=== PATIENT | female | born 2000 | race Caucasian/White ===

== ENCOUNTER 2021-03-18 09:13 | Emergency (ER) | payer OTHER, MEDICAID, SELFPAY ==
--- NOTE | ~2021-03-18 | CT_ITS ---
EXAMINATION: CT HEAD WITHOUT CONTRAST CLINICAL INFORMATION: Intermittent pains in her head x1 year. COMPARISON: None TECHNIQUE: Contiguous axial imaging was performed from the skull base to vertex without intravenous administration of contrast. This CT examination was performed using dose optimization techniques as appropriate, variously including the following: *Automated exposure control *Adjustment of mA and/or kV according to patient size (this includes techniques or standardized protocols for targeted exams where dose is matched to indication/reason for exam; i.e. extremities or head) *Use of iterative reconstruction technique DLP: 767 mGy-cm FINDINGS: There is no evidence of acute intracranial hemorrhage or territorial infarction. No abnormal mass effect or midline shift is seen. Oliver to white matter differentiation is well preserved. No extra-axial fluid collections are identified. The ventricles are normal in size. There is no abnormal attenuation within the brain parenchyma. The osseous structures and soft tissues are normal. The mastoid air cells and visualized portions of the paranasal sinuses are well aerated. CT/CT head/brain wo con IMPRESSION: No acute intracranial process seen.
[2021-03-18 09:26] VITALS: BP 144/95; PULSE 89; RESP 16; TEMP 36.8; O2SAT 98; BMI 45.1
--- NOTE | 2021-03-18 12:07 | ED.GENADULT ---
HPI - General Adult General Chief complaint: General Medical Stated complaint: head pain Time Seen by Provider: 03/18/21 10:47 Source: patient Mode of arrival: ambulatory Limitations: no limitations History of Present Illness HPI narrative: 20-year-old female presenting to the ED with complaints of atraumatic head pain that has been intermittent for the past year and she is getting concerned about this therefore she came here for further evaluation treatment. She denies any injuries that she can recall to the head, dizziness, headaches, change in vision, neck pain/stiffness, rashes or any other symptoms complaints or concerns at this time. complaint: Head pain Related Data Previous Rx's Medication Instructions Recorded acetaminophen 500 mg tablet 1,000 mg PO QID PRN #14 tab 03/18/21 (Tylenol Extra Strength) Allergies Allergy/AdvReac Type Severity Reaction Status Date / Time No Known Allergies Allergy Unverified 03/15/20 19:49 [No Known Allergies*] Review of Systems Review of Systems: Constitutional : No Weight loss, No Fever, No Chills, No Night Sweats, No Fatigue, NoMalaise ENT/Mouth: No ear pain, No sore throat, No Difficulty swallowing Cardiovascular : No Chest Pain, No SOB, No Dyspnea on Exertion, No Orthopnea, NoEdema, No Palpitations Respiratory : No Cough, No Sputum, No Wheezing, No Dyspnea Gastrointestinal : No Nausea, No Vomiting, No abdominal pain, No Diarrhea, No blood streaked emesis, No coffee-ground emesis, No gross hematemesis, No blood streak stool, No gross hematochezia, No Melena Genitourinary : No irregular bleeding, No Dysuria, No Urinary Frequency, No Hematuria,No Urinary Incontinence, No Urgency, No Flank Pain Musculoskeletal : No joint pain, No Myalgias, No Joint Swelling Skin : No Skin Lesions, No rash Neuro : Positive scalp/head pain, No Weakness, No Numbness, No Paresthesias, No Loss of Consciousness, No Dizziness, No Headache Psych : No Social Issues, Heme/Lymph: No Bruising, No Bleeding,No Lymphadenopathy Endocrine : No Polyuria, No Polydipsia, No Temperature Intolerance Yes all other systems are reviewed and are negative PMFSH Past Medical History Attestation statement: The following information was validated with the patient. Social History Social History Advance Directives: No Advance Directives Information Provided: No Physical Exam Vital Signs: Vital Signs: Last Vital Signs Temp 98.3 F 03/18/21 09:26 Pulse 89 03/18/21 09:26 Resp 16 03/18/21 09:26 BP 144/95 H 03/18/21 09:26 Pulse Ox 98 03/18/21 09:26 Body Mass Index 45.1 vital signs have been reviewed as normal and appeared to be correct. Blood pressure normal. Heart rate normal. Respiration rate normal. Temperature normal. Oxygen saturation normal. Appearance: Alert. Oriented X3. No acute distress. Head: Normal external exam. Normocephalic. Atraumatic. No rashes/induration/fluctuance/lesion/signs of infection noted. Eyes: PERRLA. EOMI. Conjunctiva and sclera normal. Eyelids normal. ENT: Pharynx normal. Uvula midline. Moist mucous membranes. Neck: Normal inspection. Neck supple. FROM. No adenopathy. No meningeal signs. CVS: Normal heart rate and rhythm. Heart sound normal. Pulses normal throughout. No murmurs/rales/gallops. Respiratory: No respiratory distress. Painless inspiration. Back: Full range of motion noted. No rashes/lesion/induration/fluctuance or signs of infection noted. Skin: Skin warm and dry. Normal skin color. Normal skin turgor. No rashes/lesions/lacerations noted. Extremities: Extremities exhibit normal range of motion. Extremities nontender. Neuro: Oriented X 3. No motor deficit. No sensory deficit. Reflexes normal. Normal steady gait. No focal neuro deficits noted. Vascular: + radial pulses/+ 2 distal pedal pulses/+2 dorsalis pedis b/l. Normal cap refill. No cyanosis noted to upper extremity nails and lower extremity toes nails. Course Course Course Narrative: 20-year-old female with a parietal head pain that has been intermittent over the past year no injury. Patient has benign exam. Neuro intact. No focal neuro deficits are noted. CT scan of brain obtained and negative for any acute processes. Patient most likely intermittent headaches or strain of the scalp. Will DC home with instructions return if any new or worsening symptoms to follow up with primary care provider. Patient understands agrees with this plan. Medical Decision Making Medical Records Medical records reviewed: Yes I reviewed the patient's medical records. Imaging Data CT scan - head: Attestation: I personally reviewed and interpreted this imaging study as follows: Radiologist's impression: FINDINGS: There is no evidence of acute intracranial hemorrhage or territorial infarction. No abnormal mass effect or midline shift is seen. Oliver to white matter differentiation is well preserved. No extra-axial fluid collections are identified. The ventricles are normal in size. There is no abnormal attenuation within the brain parenchyma. The osseous structures and soft tissues are normal. The mastoid air cells and visualized portions of the paranasal sinuses are well aerated. ? CT/CT head/brain wo con IMPRESSION: No acute intracranial process seen. Discharge Plan Discharge Clinical Impression: Pain of scalp Patient Disposition: Home, Self-Care Instructions: General Headache (ED) Prescriptions: New acetaminophen [Tylenol Extra Strength] 500 mg tablet 1,000 mg PO QID PRN (Reason: fever or pain) Qty: 14 RF: 0 Referrals: Physician,Unknown [Primary Care Provider] - 2 days (your pcp) Stand Alone Forms: Work/School Release Print Language: Amharic
== END 2021-03-18 12:31 | disposition home or self-care (01) ==
PROVIDERS: Emergency Provider Emergency Medicine Emergency Medical Services
DX: R51.9 Headache, unspecified (principal)
CPT/HCPCS: 70450; 99283; 99284

== ENCOUNTER 2021-03-22 15:14 | Emergency (ER) | payer OTHER, SELFPAY ==
--- NOTE | ~2021-03-22 | XR_ITS ---
EXAMINATION: XR FOOT, RIGHT CLINICAL INFORMATION: Anterior pain travels up the ankle. Twisting injury. Swelling and pain COMPARISON: None TECHNIQUE: AP, lateral, and oblique views of the right foot. FINDINGS: Mild dorsal soft tissue swelling overlying the mid foot. Bones are normal anatomic alignment with no acute fracture or dislocation seen. No significant degenerative or destructive changes. No radiographic foreign body XR/XR foot RT 2V IMPRESSION: Soft tissue swelling but no acute bony abnormality.
[2021-03-22 17:00] VITALS: BP 124/68; PULSE 88; RESP 16; TEMP 36.8; O2SAT 98; BMI 45.1
--- NOTE | 2021-03-22 18:11 | ED.LOWEXIN ---
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 Patient jumped for the ball and ?landed funny?. She did not fall, she did not hit her head, no loss of consciousness. Patient can weight bear, and when she was walking the pain as a 6/10. MD complaint: foot injury Onset (ago): hour(s) (2) Type of Injury: unknown Place: school Severity: moderate Severity scale (1-10): 6 Relieving factors: nothing Exacerbating factors: movement Associated symptoms: swelling Other symptoms: none Related Data Previous Rx's Medication Instructions Recorded acetaminophen 500 mg tablet 1,000 mg PO QID PRN #14 tab 03/18/21 (Tylenol Extra Strength) Allergies Allergy/AdvReac Type Severity Reaction Status Date / Time No Known Allergies Allergy Verified 03/22/21 17:43 [No Known Allergies*] Review of Systems Constitutional: Constitutional: Denies body ache(s), Denies chills, Denies fatigue, Denies fever(s), Denies headache(s), Denies malaise and Denies weakness Eyes: Eyes: Denies diplopia ENT: Denies vertigo, Denies dizziness, Denies headache(s) and Denies throat swelling Cardiovascular: Cardiovascular: Denies chest pain, Denies syncope, Denies leg edema, Denies lightheadedness, Denies Loss of Consciousness, Denies palpitations and Denies dyspnea Respiratory: Respiratory: Denies chest congestion, Denies cough and Denies dyspnea Musculoskeletal: Comments: foot pain Neurologic: Denies confusion, Denies vertigo, Denies dizziness, Denies syncope, Denies headache(s) and Denies weakness Psychiatric: Psychiatric: Denies anxiety, Denies confusion and Denies depression Endocrine: Endocrine: Denies fatigue and Denies palpitations Allergic/Immunologic: Allergic/Immunologic: Denies throat swelling PMFSH Social History Social History Advance Directives: No Advance Directives Information Provided: No Patient : No Physical Exam Vital Signs: Vital Signs: Last Vital Signs Temp 98.2 F 03/22/21 17:00 Pulse 88 03/22/21 17:00 Resp 16 03/22/21 17:00 BP 124/68 03/22/21 17:00 Pulse Ox 98 03/22/21 17:00 Body Mass Index 45.1 Const: General: No confusion Nutritional Appearance: well nourished Orientation/consciousness: No confusion Limitations: no limitations Eyes: Conjunctivae: conjunctivae normal Pupils: Equal, round and reactive pupils present EOM: EOMs intact bilaterally Neck: Neck: Yes full ROM, Yes no lymphadenopathy and Yes supple Resp: Effort & Inspection: normal respiratory effort and able to speak in complete sentences Auscultation: clear to auscultation bilaterally, no crackles, no rales, no rhonchi and no wheezes Cardio: Rate: regular rate Rhythm: regular rhythm Heart sounds: S1 normal heart sound present and S2 normal heart sound present Skin: Other: Mild soft tissue swelling dorsum right foot Neuro: General: No confusion Cranial nerves: Yes Equal, round and reactive pupils present Extrem: Right lower extremity: full ROM, normal capillary refill and foot Details: normal capillary refill, tenderness Location: of the dorsal foot Location: proximally, toes with normal ROM, vascular exam Details: dorsalis pedis pulse present, posterior tibial pulse present and normal capillary refill, tendon exam Details: active flexion normal and active extension normal and motor-sensory exam Details: light-touch normal; Negative for no unusual warmth and no crepitus; No no edema Psych: Appearance: grossly normal Affect: normal affect Attitude: cooperative Thought process: Normal thought process present Course Course Course Narrative: 20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 Patient can weightbear. X-ray shows soft tissue swelling mid foot, no fracture or dislocation. Patient provided postop shoe, return to play and 5 days, alternate Tylenol ibuprofen, counseled RICE, return precautions given Discharge Plan Discharge Clinical Impression: Contusion of foot, right Qualifiers: Encounter type: initial encounter Qualified Code(s): S90.31XA - Contusion of right foot, initial encounter Patient Disposition: Home, Self-Care Instructions: Contusion in Adults (ED), R.I.C.E. Treatment (ED) Additional Instructions: Please use the postop shoe for the next 3 or 4 days. Please rest, ice, and elevate your foot. Please alternate Tylenol and ibuprofen for pain. Take 1 or the other every 4 hours. For example, at midnight take 1000 mg of Tylenol, then at 4:00 a.m. take 800 mg ibuprofen, at 8:00 a.m. take 1000 mg of Tylenol, at noon take 800 mg of ibuprofen, at 4:00 p.m. take 1000 mg of Tylenol, at 8:00 p.m. take 800 mg of ibuprofen. Do not exceed 3000 mg of Tylenol in 24 hours. This method is proven to be as effective as an opioid for pain control. Prescriptions: No Action acetaminophen [Tylenol Extra Strength] 500 mg tablet 1,000 mg PO QID PRN (Reason: fever or pain) Qty: 14 RF: 0
== END 2021-03-22 18:44 | disposition home or self-care (01) ==
PROVIDERS: Emergency Provider Emergency Medicine
DX: S90.31XA Contusion of right foot, initial encounter (principal); M79.671 Pain in right foot; Y93.68 Activity, volleyball (beach) (court); Y92.318 Other athletic court as the place of occurrence of the external cause; Y99.9 Unspecified external cause status
CPT/HCPCS: 73620; 99283

== ENCOUNTER 2021-05-06 11:54 | Emergency (ER) | payer OTHER, SELFPAY ==
--- NOTE | ~2021-05-06 | XR_ITS ---
EXAMINATION: XR KNEE, RIGHT CLINICAL INFORMATION: 20-year-old female with right knee pain. COMPARISON: None TECHNIQUE: Four views of the right knee. FINDINGS: No fracture or dislocation. No suprapatellar joint effusion. Joint spaces are well-maintained. No appreciable degenerative changes. No focal soft tissue swelling of the anterior knee. XR/XR knee RT 3V IMPRESSION: Unremarkable radiographs of the right knee.
[2021-05-06 12:10] VITALS: BP 142/74; PULSE 92; RESP 16; TEMP 36.9; O2SAT 98; BMI 50.0
--- NOTE | 2021-05-06 14:19 | ED_ITS ---
HPI - Extremity Problem General Chief complaint: Extremity Problem Stated complaint: knee pain Time Seen by Provider: 05/06/21 14:18 Source: patient Mode of arrival: ambulatory Limitations: no limitations History of Present Illness HPI Narrative: 20-year-old female came in for evaluation of her right knee pain. Patient hurt her right knee while playing volleyball about 2 weeks ago, been having a constant pain in the right knee, pain is moderate 5/10, worsening with walking and movement, nothing relieving the pain, no other associated symptoms. Pain is localized to the right knee with no radiation Related Data Previous Rx's Medication Instructions Recorded acetaminophen 500 mg tablet 1,000 mg PO QID PRN #14 tab 03/18/21 (Tylenol Extra Strength) ibuprofen 800 mg tablet 800 mg PO Q8H PRN #20 tab 05/06/21 Allergies Allergy/AdvReac Type Severity Reaction Status Date / Time No Known Allergies Allergy Verified 03/22/21 17:43 [No Known Allergies*] Review of Systems Review of Systems: All other systems are reviewed and are negative Constitutional: Reports as per HPI and Reports no additional constitutional complaints Eyes: Reports as per HPI and Reports no additional eye complaints Reports system reviewed and no additional complaints, except as documented Cardiovascular: Reports as per HPI and Reports no additional cardiovascular complaints Respiratory: Reports as per HPI and Reports no additional respiratory complaints Gastrointestinal: Reports as per HPI and Reports no additional gastrointestinal complaints Genitourinary: Reports no additional female genitourinary complaints Musculoskeletal: Reports no additional musculoskeletal complaints Skin/Breast: Reports system reviewed and no additional complaints, except as docu Psychiatric: Reports no additional psychiatric complaints Endocrine: Reports no additional endocrine complaints Hematologic/Lymphatic: Reports no additional hematologic/lymphatic complaints Allergic/Immunologic: Reports no additional allergic/immunologic complaints Reports system reviewed and no additional complaints, except as documented and Reports Abnormal speech present [facility] Social History Social History Advance Directives: No Advance Directives Information Provided: No Patient : No Physical Exam Vital Signs: Vital Signs: Last Vital Signs Temp 98.4 F 05/06/21 12:10 Pulse 92 05/06/21 12:10 Resp 16 05/06/21 12:10 BP 142/74 H 05/06/21 12:10 Pulse Ox 98 05/06/21 12:10 Body Mass Index 50.0 Vital signs have been reviewed as appeared to be correct. Blood pressure normal. Heart rate normal. Respiration rate normal. Temperature normal. Oxygen saturation normal. Appearance: Alert. Oriented X3. No acute distress. Head: Normal external exam. Normocephalic. Atraumatic. No Cedeno signs noted. No raccoon eyes noted Eyes: PERRLA. EOMI. Conjunctiva and sclera normal. Eyelids normal. ENT: TM's Normal. Pharynx normal. Uvula midline. Moist mucous membranes. No trismus noted. No drooling noted. No muffled voice noted. Neck: Normal inspection. Neck supple. FROM. No adenopathy. Thyroid Normal. No meningeal signs. No neck mass noted. CVS: Normal heart rate and rhythm. Heart sound normal. No murmurs noted. Pulses normal throughout. Respiratory: No respiratory distress. Painless inspiration. Breath sounds nor mal. No wheezes/rales/rhonchi noted. Chest nontender. No accessory muscle usage noted or decreased air movement noted. Abdomen: Soft and nontender. Bowel sounds normal in all 4 quadrants. No distent ion noted. No organomegaly noted. No visible injury noted. Back: No CVA tenderness. Full range of motion noted. Skin: Skin warm and dry. Normal skin color. Normal skin turgor. No rashes/lesions/lacerations noted. Extremities: No lower extremity edema. Extremities exhibit normal range of motion. Extremities nontender. Right knee exam: Normal inspection, no deformity, no step-off, full range of motion, no point of tenderness. No joint effusion. Neuro: Oriented X 3. Cranial nerve exam: II-XII are grossly intact No motor deficit. No sensory deficit. Reflexes normal. Course Course Course Narrative: Right knee pain after injury 2 weeks ago. Elevation, ice, NSAIDs MDM - Extremity (Nontraumatic) Imaging Data Right knee x-ray: Radiologist's impression: No acute right knee pathology. Discharge Plan Discharge Clinical Impression: Right knee sprain Contusion of knee, right Qualifiers: Encounter type: initial encounter Qualified Code(s): S80.01XA - Contusion of right knee, initial encounter Patient Disposition: Home, Self-Care Instructions: Knee Sprain (ED) Prescriptions: New ibuprofen 800 mg tablet 800 mg PO Q8H PRN (Reason: pain) Qty: 20 RF: 0 No Action acetaminophen [Tylenol Extra Strength] 500 mg tablet 1,000 mg PO QID PRN (Reason: fever or pain) Qty: 14 RF: 0 Referrals: Dionicio Mckinney MD [Physician] - 2 days Physician,None [Primary Care Provider] - 2 days Stand Alone Forms: Work/School Release
== END 2021-05-06 15:15 | disposition home or self-care (01) ==
PROVIDERS: Emergency Provider Emergency Medicine
DX: S80.01XA Contusion of right knee, initial encounter (principal); M25.561 Pain in right knee; Y29.XXXA Contact with blunt object, undetermined intent, initial encounter; Y93.68 Activity, volleyball (beach) (court); Y92.318 Other athletic court as the place of occurrence of the external cause; Y99.8 Other external cause status; Z79.899 Other long term (current) drug therapy
CPT/HCPCS: 73562; 99283